=== PATIENT | female | born 1935 | race Caucasian/White ===

== ENCOUNTER 2021-07-01 07:41 | Outpatient (CLI) | payer MEDICARE | END 2021-07-01 07:42 | disposition home or self-care (01) | LOC: CSHCT 07:41 | PROVIDERS: ATTEND Nurse Practitioner | DX: Z01.810 Encounter for preprocedural cardiovascular examination (principal); I48.0 Paroxysmal atrial fibrillation; R29.6 Repeated falls; I25.10 Atherosclerotic heart disease of native coronary artery without angina pectoris | CPT/HCPCS: 71275; 82565 ==